=== PATIENT | male | born 1975 | race African-American/Black ===

== ENCOUNTER 2021-05-19 11:09 | Emergency (ER) | payer OTHER ==
[~2021-05-19] VITALS: Ht 180.3 cm; Wt 72.6 kg
--- NOTE | ~2021-05-19 | EMS ---
[address] [address] EMS Patient Care Report Name: ELSA CUNNINGHAM Room #: DEP NEVIN Ross#: [id number] Admission: 05/19/21 Attend Phys: Discharge: 05/19/21 Date of : 71 Report #: [id number] THIS REPORT FOR: //name// Report Transmitted: 05/23/2021 15:48 EMS Care Summary [place], [place]/[facility] Incident [id number] @ 05/19/2021 10:35 Incident Location [address] [place], [place] [id number] Patient ELSA CUNNINGHAM Male, 46 Years 1975 Patient Address [address] [place], [place] [id number] Patient History Hypertension (HTN),Smoking, Patient Allergies No known allergies, Patient Medications Compazine, Chief Complaint abdominal pain Disposition Transported No Lights/[place] Dispatch Reason Chest Pain (Non-Traumatic) Transported To [facility] Narrative Arrived to find pt laying on couch in front living room with . states pt has been complaining of abdominal pain and vomiting for the past 3 hours. Pt did not produce much vomit and it looked like watery food substance. Pt states he has had nausea before and took an old Compazine pill earlier. Pt has [address] [address] EMS Patient Care Report Name: ELSA CUNNINGHAM Room #: DEP ER LionelBroderick#: [id number] Admission: 05/19/21 Attend Phys: Discharge: 05/19/21 Date of : 71 Report #: [id number] generalized pain and chest pain when he takes a deep breath in. Pt is placed on stairchair and taken down one set of external stairs where he was placed on cot and secured to cot with cot straps. Pt placed in back of unit and placed in surgical mask. Pt 12 lead unremarkable. Pt coughed and said that started this morning. Pt then placed in 3M mask. Pt transported without incident. Care to RN, rm 11. Initial Vitals @10:57P: 53,BP: 157/91,CO: 2,SpO2: 100, @10:59P: 75,BP: 144/90,SpO2: 98, @10:52P: 63, @10:55P: 48,R: 18,Pain: 8/10,GCS: 15,Glucose: 123,CO: 1,SpO2: 99, Assessments @10:45MENTAL:Event Oriented,Place Oriented,Person Oriented,Time Oriented,SKIN:HEENT:Head/Face: No Abnormalities,Eyes: No Abnormalities,Neck/Airway: No Abnormalities,LUNG SOUNDS:General: Vomiting,Right Upper: Other,General: Nausea,Left Upper: Other,Right Lower: Other,Left Lower: Other,ABDOMEN:General: Vomiting,Right Upper: Other,General: Nausea,Left Upper: Other,Right Lower: Other,Left Lower: Other,PELVIS//GI:No Abnormalities,EXTREMITIES:Left Arm: No Abnormalities,Right Arm: No Abnormalities,Left Leg: No Abnormalities,Right Leg: No Abnormalities,PULSE:NEURO: Impression Abdominal Pain Procedures @10:52 12-Lead ECG Response: UnchangedSucceeded @10:45 ALS Assessment Response: UnchangedSucceeded @10:48 3-Lead ECG Response: UnchangedSucceeded @10:51 IV Therapy - Saline Lock 0cc (20 ga) Site: Antecubital-Left Response: UnchangedFailed Timeline 10:34,Call Received 10:34,Dispatch Notified 10:35,Dispatched 10:36,En Route 10:41,On Scene 10:43,At Patient 10:45,ALS Assessment,Response: UnchangedSucceeded, 10:48,3-Lead ECG,Response: UnchangedSucceeded, 10:51,IV Therapy - Saline Lock 0cc 20 ga Site: Antecubital-Left,Response: UnchangedFailed, [facility] [address] [place] [address] EMS Patient Care Report Name: ELSA CUNNINGHAM Room #: DEP ER Vandana#: [id number] Admission: 05/19/21 Attend Phys: Discharge: 05/19/21 Date of : 71 Report #: [id number] 10:52,12-Lead ECG,Response: UnchangedSucceeded, 10:52,BP: / M,PULSE: 63,RR: R,SPO2: Ox,ETCO2: ,BG: ,PAIN: ,GCS: , 10:54,Depart Scene 10:55,BP: / M,PULSE: 48,RR: 18 R,SPO2: 99 Ox,ETCO2: ,B,PAIN: 8,GCS: 15, 10:57,BP: 157/91 M,PULSE: 53,RR: R,SPO2: 100 Ox,ETCO2: ,BG: ,PAIN: ,GCS: , 10:59,BP: 144/90 M,PULSE: 75,RR: R,SPO2: 98 Ox,ETCO2: ,BG: ,PAIN: ,GCS: , 11:05,At Destination 11:13,Call Closed Disclaimer v1.1 Copyright 2020 [employer] This EMS Care Summary contains data elements from the applicable legal record (which may be displayed differently). It is designed to provide pertinent information for the following purposes: continuity of care, clinical quality, and state data reporting. The complete legal record is available to ED staff and administrators of the receiving hospital in [facility]'s Patient Tracker. All data is provided "as is."
--- NOTE | ~2021-05-19 | EMS ---
[address] [address] EMS Patient Care Report Name: ELSA CUNNINGHAM Room #: REG NEVIN Ross#: [id number] Admission: 05/19/21 Attend Phys: Discharge: Date of : 71 Report #: [id number] THIS REPORT FOR: //name// Report Transmitted: 05/19/2021 10:57 EMS Care Summary [place], [place]/[facility] Incident [id number] @ 05/19/2021 10:35 Incident Location [address] [place] [address] Patient ELSA CUNNINGHAM Male, 46 Years 1975 Patient Address [address] [place] [address] Patient History Hypertension (HTN),Smoking, Patient Allergies No known allergies, Patient Medications Compazine, Chief Complaint abdominal pain Disposition Transported No Lights/[place] Dispatch Reason Chest Pain (Non-Traumatic) Transported To [facility] Narrative Arrived to find pt laying on couch in front living room with . states pt has been complaining of abdominal pain and vomiting for the past 3 hours. Pt did not produce much vomit and it looked like watery food substance. Pt states he has had nausea before and took an old Compazine pill earlier. Pt has [facility] [address] [place] [address] EMS Patient Care Report Name: ELSA CUNNINGHAM Room #: REG ER Vandana#: [id number] Admission: 05/19/21 Attend Phys: Discharge: Date of : 71 Report #: [id number] generalized pain and chest pain when he takes a deep breath in. Pt is placed on stairchair and taken down one set of external stairs where he was placed on cot and secured to cot with cot straps. Pt placed in back of unit and placed in surgical mask. Pt 12 lead unremarkable. Pt coughed and said that started this morning. Pt then placed in 3M mask. Pt transported without incident. Care to RN, rm 11. Initial Vitals @10:57P: 53,BP: 157/91,CO: 2,SpO2: 100, @10:59P: 75,BP: 144/90,SpO2: 98, @10:52P: 63, @10:55P: 48,R: 18,Pain: 8/10,GCS: 15,Glucose: 123,CO: 1,SpO2: 99, Assessments @10:45MENTAL:Time Oriented,Person Oriented,Place Oriented,Event Oriented,SKIN:HEENT:Head/Face: No Abnormalities,Eyes: No Abnormalities,Neck/Airway: No Abnormalities,LUNG SOUNDS:Left Lower: Other,Right Lower: Other,General: Vomiting,Right Upper: Other,General: Nausea,Left Upper: Other,ABDOMEN:Left Lower: Other,Right Lower: Other,General: Vomiting,Right Upper: Other,General: Nausea,Left Upper: Other,PELVIS//GI:No Abnormalities,EXTREMITIES:Left Arm: No Abnormalities,Right Arm: No Abnormalities,Left Leg: No Abnormalities,Right Leg: No Abnormalities,PULSE:NEURO: Impression Abdominal Pain Procedures @10:52 12-Lead ECG Response: UnchangedSucceeded @10:45 ALS Assessment Response: UnchangedSucceeded @10:48 3-Lead ECG Response: UnchangedSucceeded @10:51 IV Therapy - Saline Lock 0cc (20 ga) Site: Antecubital-Left Response: UnchangedFailed Timeline 10:34,Call Received 10:34,Dispatch Notified 10:35,Dispatched 10:36,En Route 10:41,On Scene 10:43,At Patient 10:45,ALS Assessment,Response: UnchangedSucceeded, 10:48,3-Lead ECG,Response: UnchangedSucceeded, 10:51,IV Therapy - Saline Lock 0cc 20 ga Site: Antecubital-Left,Response: UnchangedFailed, [facility] [address] [place] [address] EMS Patient Care Report Name: ELSA CUNNINGHAM Room #: KALPANA Ross#: [id number] Admission: 05/19/21 Attend Phys: Discharge: Date of : 71 Report #: [id number] 10:52,12-Lead ECG,Response: UnchangedSucceeded, 10:52,BP: / M,PULSE: 63,RR: R,SPO2: Ox,ETCO2: ,BG: ,PAIN: ,GCS: , 10:54,Depart Scene 10:55,BP: / M,PULSE: 48,RR: 18 R,SPO2: 99 Ox,ETCO2: ,B,PAIN: 8,GCS: 15, 10:57,BP: 157/91 M,PULSE: 53,RR: R,SPO2: 100 Ox,ETCO2: ,BG: ,PAIN: ,GCS: , 10:59,BP: 144/90 M,PULSE: 75,RR: R,SPO2: 98 Ox,ETCO2: ,BG: ,PAIN: ,GCS: , 11:05,At Destination 11:13,Call Closed Disclaimer v1.1 Copyright 2020 [employer] This EMS Care Summary contains data elements from the applicable legal record (which may be displayed differently). It is designed to provide pertinent information for the following purposes: continuity of care, clinical quality, and state data reporting. The complete legal record is available to ED staff and administrators of the receiving hospital in [facility]'s Patient Tracker. All data is provided "as is."
[2021-05-19 12:01] LABS: BASOPHILS 0.4 % (0.0-2.0); HEMATOCRIT 45.4 % (42.0-52.0); HEMOGLOBIN 14.8 gm/dL (14.0-18.0); MCH 30.9 pg (26.0-34.0); MCHC 32.7 g/dL (28.0-37.0); MCV 94.6 fL (80.0-100.0); MONOCYTES 4.9 % (1.0-8.0); PLATELET COUNT 142 thou/uL (150-400); POLYS 88.7 % (36.0-66.0); RBC 4.79 mil/uL (4.50-6.00); RDW 14.4 % (10.5-14.5); WBC 13.5 thou/uL (4.0-11.0)
[2021-05-19 12:10] LABS: CALCIUM 10.2 mg/dL (8.5-10.1); CREATININE 1.2 mg/dL (0.7-1.3); POTASSIUM 4.2 mmol/L (3.5-5.1)
[2021-05-19 12:20] LABS: ALBUMIN 4.4 g/dL (3.4-5.0); TOTAL BILIRUBIN 0.5 mg/dL (0.2-1.0); TOTAL PROTEIN 7.9 g/dL (6.4-8.2)
--- NOTE | 2021-05-19 13:09 | EKG ---
[address] [address] [place] [address] ELECTROCARDIOGRAM REPORT Name: ELSA CUNNINGHAM Room #: [facility] [id number] Admission: 05/19/21 Attend Phys: Discharge: Date of : 71 Report #: [id number] [facility] ED Test Date: 2021-05-19 Test Time: 11:15:45 Pat Name: ELSA CUNNINGHAM Department: Room: Gender: M [employer]: [id number] : 1975 Requested By: Trudy Duran Order Number: [id number] MD: Gunnar Shirley Measurements Intervals [place] Rate: 63 P: 66 FL: 164 QRS: -17 QRSD: 93 T: 54 QT: 400 QTc: 410 Interpretive Statements Sinus rhythm Borderline left axis deviation RSR' in V1 or V2, probably normal variant ST elev, probable normal early repol pattern No previous ECG available for comparison Electronically Signed On 05-19-2021 13:09:29 [employer]ACHINE OPERATOR HELPER by Gunnar Shirley [email or web address] <ELECTRONICALLY SIGNED> By: Gunnar Shirley MD, [facility] 05/19/21 1309 1115 1115 Gunnar Shirley MD, FACC /EPI
[2021-05-19 14:44] VITALS: BP 173/116
== END 2021-05-19 14:45 | disposition home or self-care (01) ==
LOC: ER 11:09
PROVIDERS: Emergency Medicine
DX: R07.89 Other chest pain (principal); R10.12 Left upper quadrant pain; I10 Essential (primary) hypertension; E11.9 Type 2 diabetes mellitus without complications; F12.90 Cannabis use, unspecified, uncomplicated